=== PATIENT | male | born 1985 | race Caucasian/White ===

== ENCOUNTER 2023-09-16 09:31 | Outpatient (CLI) | payer OTHER, SELFPAY | END 2023-09-16 09:32 | disposition home or self-care (01) | LOC: NFLDREF 09-29 23:38 | PROVIDERS: Visit Provider Family Medicine | DX: N39.0 Urinary tract infection, site not specified (principal); R39.9 Unspecified symptoms and signs involving the genitourinary system | CPT/HCPCS: 87086; 87186 ==